=== PATIENT | male | born 1955 | race Caucasian/White ===

== ENCOUNTER 2025-03-12 06:30 | Day surgery (SDC) | payer OTHER, SELFPAY ==
[2025-03-12 09:08] LABS: Glucose - Point of Care 141 mg/dl (70-99)
== END 2025-03-12 10:36 | disposition home or self-care (01) ==
LOC: GI 06:30
PROVIDERS: ATTENDING PHYSICIAN Internal Medicine Gastroenterology
DX: Z12.11 Encounter for screening for malignant neoplasm of colon (principal); K64.8 Other hemorrhoids; D12.0 Benign neoplasm of cecum; K57.30 Diverticulosis of large intestine without perforation or abscess without bleeding; Z80.0 Family history of malignant neoplasm of digestive organs
CPT/HCPCS: 45385; 82962; 88305